=== PATIENT | male | born 1940 | race Caucasian/White ===

== ENCOUNTER 2020-06-07 14:53 | Outpatient (REF) | payer MEDICARE, SELFPAY ==
[2020-06-07 19:26] LABS: ALT 39 U/L (16-63); AST 25 U/L (15-37); Albumin 3.7 g/dL (3.4-5.0); Alkaline Phosphatase 74 U/L (46-116); BUN 20 mg/dL (7-18); Bilirubin, Total 0.7 mg/dL (0.2-1.0); CREATININE 0.82 mg/dL (0.70-1.30); Calcium 8.6 mg/dL (8.5-10.1); Calculated LDL 138 mg/dL (<100); Chloride 105 mmol/L (98-107); Cholesterol 212 mg/dL (<200); Glucose 97 mg/dL (74-106); HDL Cholesterol 55 mg/dL (40-60); Potassium 4.3 mmol/L (3.5-5.1); Sodium 144 mmol/L (136-145); Total Protein 7.1 g/dL (6.4-8.2); Triglyceride 99 mg/dL (<150)
[2020-06-07 19:37] LABS: Bilirubin, Direct 0.15 mg/dL (0.00-0.20)
[2020-06-08 17:46] LABS: PSA, Screening 0.3 ng/mL (0.0-6.5)
== END 2020-06-07 15:13 ==
LOC: NCHCN 14:53
PROVIDERS: PCP Family Medicine Adult Medicine; Visit Provider Nurse Practitioner Family
DX: I25.10 Atherosclerotic heart disease of native coronary artery without angina pectoris (principal); Z79.899 Other long term (current) drug therapy; Z12.5 Encounter for screening for malignant neoplasm of prostate
CPT/HCPCS: 80048; 80061; 80076; 84153

== ENCOUNTER 2020-12-04 11:10 | Outpatient (REF) | payer MEDICARE, SELFPAY ==
[2020-12-04 18:43] LABS: BUN 22 mg/dL (7-18); Calcium 9.1 mg/dL (8.5-10.1); Chloride 105 mmol/L (98-107); Glucose 84 mg/dL (74-106); Potassium 4.3 mmol/L (3.5-5.1); Sodium 144 mmol/L (136-145)
== END 2020-12-04 11:11 | disposition home or self-care (01) ==
LOC: NCHCN 11:10
PROVIDERS: PCP Nurse Practitioner Family; Visit Provider Nurse Practitioner Family
DX: R53.83 Other fatigue (principal); Z79.899 Other long term (current) drug therapy
CPT/HCPCS: 80048; 82306